=== PATIENT | male | born 1965 | race Caucasian/White ===

== ENCOUNTER 2024-03-10 15:11 | Emergency (ER) | payer OTHER ==
[2024-03-10 15:22] VITALS: BMI 28.0
[2024-03-10 16:49] LABS: BASO % 0.9 % (0-2.0); EOS % 2.1 % (0-4.5); HEMATOCRIT 42.1 % (35.4-49); HEMOGLOBIN 14.4 GM/dL (11.7-16.9); LYMPH % 14.9 % (8-40); MCH 31.2 pg (25.7-33.7); MCHC 34.2 g/dl (32.0-35.9); MEAN CELL VOLUME 91.1 fl (80-96); MEAN PLT VOLUME 8.2 fl (7.5-11.1); MONO % 9.2 % (3.8-10.2); NEUT % 72.9 % (42.8-82.8); PLATELET COUNT 234 10^3/uL (134-434); RBC 4.62 M/mm3 (4.00-5.60); RDW 13.1 % (11.9-15.9); WHITE BLOOD COUNT 9.7 K/mm3 (4.0-10.0)
[2024-03-10 17:04] LABS: PH,URINE 5.5 (5.0-8.0); URINE APPEARANCE CLEAR; URINE BILIRUBIN NEGATIVE (NEGATIVE); URINE COLOR YELLOW; URINE GLUCOSE (UA) NEGATIVE (NEGATIVE); URINE KETONE TRACE (NEGATIVE); URINE LEUK ESTERASE NEGATIVE (NEGATIVE); URINE NITRITE NEGATIVE (NEGATIVE); URINE PROTEIN NEGATIVE (NEGATIVE)
[2024-03-10 17:13] LABS: POTASSIUM 4.4 mmol/L (3.5-5.1)
[2024-03-10 17:15] LABS: CALCIUM 9.5 mg/dL (8.5-10.1)
[2024-03-10 17:16] LABS: ALBUMIN 3.9 g/dl (3.4-5.0); BLOOD UREA NITROGEN 15.9 mg/dL (7-18)
[2024-03-10 17:17] LABS: PHOSPHOROUS 3.8 mg/dL (2.5-4.9)
[2024-03-10 17:20] LABS: TOT PROT 7.4 g/dl (6.4-8.2)
[2024-03-10 17:21] LABS: BILIRUBIN,TOTAL 0.4 mg/dL (0.2-1)
[2024-03-10 17:24] LABS: CREATININE 1.1 mg/dL (0.55-1.3)
[2024-03-10 18:49] VITALS: BP 115/72; PULSE 88; RESP 18; TEMP 98.1
== END 2024-03-10 18:49 | disposition home or self-care (01) ==
LOC: JER 15:11
DX: R10.31 Right lower quadrant pain (principal); N42.89 Other specified disorders of prostate
CPT/HCPCS: 36415; 74176-TC; 80053; 81003; 83605; 83690; 83735; 84100; 85025; 99284-25